=== PATIENT | female | born 1985 | race Caucasian/White ===

== ENCOUNTER 2021-11-06 19:26 | Outpatient (CLI) | payer OTHER, SELFPAY ==
[~2021-11-06] VITALS: Ht 154.9 cm; Wt 78.0 kg
[2021-11-06 19:50] VITALS: BP 89/52
[2021-11-06 19:56] VITALS: BP 91/54
[2021-11-06] MEDS ORDERED: METH-1177 PO (20:04)
[2021-11-06] MEDS ORDERED: FLUO40CA PO (20:04)
[2021-11-06] MEDS ORDERED: HOME MED LIST COMPLETE! XX SCH (20:05)
[2021-11-06] MEDS ORDERED: ACETAMINOPHEN 325 MG TAB PO ONE (21:15)
[2021-11-06 21:19] LABS: HEMOGLOBIN 9.2 g/dl (12.0-15.5); MEAN CORPUSCULAR HEMOGLOBIN 28.6 pg (27.0-33.0); MEAN CORPUSCULAR HGB CONC 32.9 g/dl (32.0-36.5); PLATELET COUNT, AUTOMATED 335 10^3/uL (150-450); RED BLOOD COUNT 3.22 10^6/uL (4.00-5.40); WHITE BLOOD COUNT 11.1 10^3/uL (4.0-10.0)
[2021-11-06] MEDS ORDERED: METHADONE 10MG TAB PO ONE ×2 (21:20→23:00)
[2021-11-06 21:29] VITALS: BP 87/50
[2021-11-06 21:31] LABS: INR 0.96; PROTHROMBIN TIME 13.2 SECONDS (12.7-14.5)
[2021-11-06 21:32] LABS: PARTIAL THROMBOPLASTIN TIME 27.2 SECONDS (25.9-37.0)
[2021-11-06 22:46] VITALS: BP 94/51
[2021-11-07 00:47] VITALS: BP 88/52
== END 2021-11-07 01:38 | disposition home or self-care (01) ==
LOC: M LDO 19:26
PROVIDERS: ATTEND Obstetrics & Gynecology
DX: O9A.213 Injury, poisoning and certain other consequences of external causes complicating pregnancy, third trimester (principal); S30.0XXA Contusion of lower back and pelvis, initial encounter; W10.8XXA Fall (on) (from) other stairs and steps, initial encounter; Y92.009 Unspecified place in unspecified non-institutional (private) residence as the place of occurrence of the external cause; Z3A.38 38 weeks gestation of pregnancy; O09.523 Supervision of elderly multigravida, third trimester; O32.0XX0 Maternal care for unstable lie, not applicable or unspecified; Z88.0 Allergy status to penicillin; Z88.2 Allergy status to sulfonamides; Z88.8 Allergy status to other drugs, medicaments and biological substances; Z79.899 Other long term (current) drug therapy
CPT/HCPCS: 36415; 59025; 76815; 85027; 85384; 85610; 85730; G0378; G0463